=== PATIENT | male | born 1975 | race Caucasian/White ===

== ENCOUNTER 2021-10-20 11:07 | Inpatient (IN) ==
[2021-10-20] MEDS ORDERED: Acetaminophen 325 MG TABLET PO PRN (15:09)
[2021-10-20] MEDS: *HR* OxyCODONE Immed Rel 5 MG TABLET PO PRN ×2 (18:21→23:57)
[2021-10-20] MEDS: Gabapentin 400 MG CAPSULE PO SCH (21:55)
[2021-10-20] MEDS: Apixaban 5 MG TABLET PO SCH (21:56)
[2021-10-20] MEDS: Topiramate 25 MG TABLET PO SCH (21:57)
[2021-10-20] MEDS: rOPINIRole 1 MG TABLET PO SCH (21:57)
[2021-10-20] MEDS: Sennosides/Docusate Sodium TABLET PO SCH (21:57)
[2021-10-21 06:03] LABS: Basophils # 0.1 K/mcL (0.0-0.2); Basophils % 0.8 %; Eosinophils # 0.3 K/mcL (0.0-0.6); Eosinophils % 4.1 %; Hematocrit 37.9 % (37.5-50.1); Hemoglobin 12.6 g/dL (12.9-16.9); Immature Granulocytes % 1.2 % (0-4); Lymphocytes % 29.4 %; Mean Corpuscular HGB Conc 33.2 g/dL (31.6-35.5); Mean Corpuscular Hemoglobin 30.6 pg (28.0-33.3); Mean Platelet Volume 9.4 fL (9.4-12.4); Monocytes # 0.9 K/mcL (0.0-1.3); Monocytes % 13.1 %; Neutrophils # 3.4 K/mcL (1.6-8.9); Platelet Count 255 K/mcL (140-400); Red Blood Count 4.12 M/mcL (4.19-5.50); Red Cell Distribution Width 12.9 % (11.5-14.5); Segmented Neutrophils % 51.4 %; White Blood Count 6.6 K/mcL (4.3-11.1)
[2021-10-21 06:32] LABS: BUN/Creatinine Ratio 17 (6-26); Blood Urea Nitrogen 18 mg/dL (6-20); Carbon Dioxide 23 mEq/L (23-29); Chloride 105 mEq/L (98-107); Glucose 101 mg/dL (70-105); Osmolality,Calculated 286 (280-300); Potassium 3.8 mEq/L (3.5-5.1); Sodium 137 mEq/L (136-145); eGFR For African Americans > 60 (> 60); eGFR For Non-African Americans > 60 (> 60)
[2021-10-21] MEDS: Topiramate 25 MG TABLET PO SCH ×2 (07:51→22:32)
[2021-10-21] MEDS: Gabapentin 400 MG CAPSULE PO SCH ×2 (07:51→17:15)
[2021-10-21] MEDS: Sennosides/Docusate Sodium TABLET PO SCH ×2 (07:52→22:26)
[2021-10-21] MEDS: *HR* OxyCODONE Immed Rel 5 MG TABLET PO PRN (07:52)
[2021-10-21] MEDS: Apixaban 5 MG TABLET PO SCH ×2 (07:52→22:29)
[2021-10-21] MEDS: Multivit/Ca/Min/Fe/FA 1 TAB TABLET PO SCH (08:42)
[2021-10-21] MEDS: Aspirin Enteric Coated 81 MG Tablet PO SCH (08:42)
[2021-10-21] MEDS ORDERED: lamoTRIgine 25 MG TABLET PO SCH (09:00)
[2021-10-21] MEDS: *HR* OxyCODONE/APAP 7.5/325 TABLET PO PRN ×3 (12:52→22:22)
[2021-10-21] MEDS: Gabapentin 300 MG CAPSULE PO SCH ×2 (17:23→22:33)
[2021-10-21] MEDS: rOPINIRole 1 MG TABLET PO SCH (22:30)
[2021-10-22] MEDS: *HR* OxyCODONE/APAP 7.5/325 TABLET PO PRN ×5 (03:00→20:20)
[2021-10-22] MEDS: Multivit/Ca/Min/Fe/FA 1 TAB TABLET PO SCH (07:31)
[2021-10-22] MEDS: Sennosides/Docusate Sodium TABLET PO SCH ×3 (07:31→20:38)
[2021-10-22] MEDS: Apixaban 5 MG TABLET PO SCH ×2 (07:31→20:19)
[2021-10-22] MEDS: Aspirin Enteric Coated 81 MG Tablet PO SCH (07:31)
[2021-10-22] MEDS: Topiramate 25 MG TABLET PO SCH ×2 (07:32→20:36)
[2021-10-22] MEDS: Gabapentin 300 MG CAPSULE PO SCH ×3 (07:32→20:36)
[2021-10-22] MEDS: lamoTRIgine 100 MG TABLET PO SCH (12:21)
[2021-10-22] MEDS: rOPINIRole 1 MG TABLET PO SCH (20:25)
[2021-10-23] MEDS: *HR* OxyCODONE/APAP 7.5/325 TABLET PO PRN ×5 (03:51→22:14)
[2021-10-23] MEDS: Apixaban 5 MG TABLET PO SCH ×2 (07:19→21:57)
[2021-10-23] MEDS: Gabapentin 300 MG CAPSULE PO SCH ×3 (07:19→21:57)
[2021-10-23] MEDS: lamoTRIgine 100 MG TABLET PO SCH (07:20)
[2021-10-23] MEDS: Multivit/Ca/Min/Fe/FA 1 TAB TABLET PO SCH (07:21)
[2021-10-23] MEDS: Aspirin Enteric Coated 81 MG Tablet PO SCH (07:21)
[2021-10-23] MEDS: Topiramate 25 MG TABLET PO SCH ×2 (07:21→21:58)
[2021-10-23] MEDS: Sennosides/Docusate Sodium TABLET PO SCH ×2 (07:21→21:57)
[2021-10-23 19:10] VITALS: PULSE 78
[2021-10-23] MEDS: rOPINIRole 1 MG TABLET PO SCH (21:57)
[2021-10-24] MEDS: *HR* OxyCODONE/APAP 7.5/325 TABLET PO PRN ×3 (02:34→13:04)
[2021-10-24] MEDS: Topiramate 25 MG TABLET PO SCH (07:56)
[2021-10-24] MEDS: Aspirin Enteric Coated 81 MG Tablet PO SCH (07:56)
[2021-10-24] MEDS: lamoTRIgine 100 MG TABLET PO SCH (07:57)
[2021-10-24] MEDS: Gabapentin 300 MG CAPSULE PO SCH (07:57)
[2021-10-24] MEDS: Multivit/Ca/Min/Fe/FA 1 TAB TABLET PO SCH (07:57)
[2021-10-24] MEDS: Sennosides/Docusate Sodium TABLET PO SCH (07:58)
[2021-10-24] MEDS: Apixaban 5 MG TABLET PO SCH (07:58)
[2021-10-24 08:24] VITALS: BP 133/86; RESP 16; TEMP 98.4; O2SAT 99
[2021-10-24] MEDS ORDERED: Nicotine 21 MG PATCH.TD24 TD SCH (09:00)
== END 2021-10-24 14:29 | disposition home or self-care (01) | DRG 300 ==
LOC: INPGRE 17:46
PROVIDERS: ADMIT Family Medicine; ATTEND Family Medicine